=== PATIENT | male | born 1995 | race Caucasian/White ===

== ENCOUNTER 2017-09-08 10:05 | Emergency (ER) | payer OTHER ==
[~2017-09-08] VITALS: Ht 177.8 cm; Wt 68.0 kg
[2017-09-08] MEDS ORDERED: BUTALB-APAP-CA1 EACH PO (10:29)
[2017-09-08] MEDS ORDERED: PHENERGAN 25 MG25 M1 PO (10:29)
[2017-09-08 11:15] VITALS: BP 102/63
== END 2017-09-08 11:16 | disposition home or self-care (01) ==
LOC: ER 10:05
DX: R51 Headache (principal); F17.210 Nicotine dependence, cigarettes, uncomplicated